=== PATIENT | male | born 1990 | race Caucasian/White ===

== ENCOUNTER 2022-07-31 19:23 | Emergency (ER) | payer MEDICAID ==
[~2022-07-31] VITALS: Ht 162.6 cm; Wt 91.0 kg
[2022-07-31 19:32] VITALS: BP 164/103
[2022-07-31] MEDS ORDERED: TOPUD PO (21:23)
[2022-07-31] MEDS ORDERED: IBUP-2028 MT (21:23)
[2022-07-31] MEDS ORDERED: ACETAMINOPHEN 325MG TABLET PO ONE (21:30)
[2022-07-31] MEDS ORDERED: IBUPROFEN 400MG TABLET PO ONE (21:30)
== END 2022-07-31 21:30 | disposition home or self-care (01) ==
LOC: ER 19:23
DX: S93.521A Sprain of metatarsophalangeal joint of right great toe, initial encounter (principal); X58.XXXA Exposure to other specified factors, initial encounter; Y93.89 Activity, other specified; Y92.89 Other specified places as the place of occurrence of the external cause; Y99.8 Other external cause status
CPT/HCPCS: 73630; 99283; Z7610

== ENCOUNTER 2022-08-09 13:59 | Emergency (ER) | payer MEDICAID ==
[~2022-08-09] VITALS: Ht 157.5 cm; Wt 84.0 kg
[~2022-08-09 13:59] MED LIST: IBUP-2028 MT; TOPUD PO
[2022-08-09 14:21] VITALS: BP 186/113
[2022-08-09] MEDS ORDERED: IBUPROFEN 600MG TABLET PO ONE (17:45)
== END 2022-08-09 18:02 | disposition home or self-care (01) ==
LOC: ER 13:59
DX: S93.601A Unspecified sprain of right foot, initial encounter (principal); X58.XXXA Exposure to other specified factors, initial encounter; Y93.89 Activity, other specified; Y92.89 Other specified places as the place of occurrence of the external cause; Y99.8 Other external cause status
CPT/HCPCS: 73610; 99283